=== PATIENT | female | born 1995 | race African-American/Black ===

== ENCOUNTER 2018-08-04 06:57 | Inpatient (IN) ==
[2018-08-04] MEDS ORDERED: CITRIC ACID/SODIUM CITRATE 30 ML UDCUP PO ONE ×2 (07:09→17:30)
[2018-08-04] MEDS ORDERED: FAMOTIDINE 20 MG/2 ML VIAL IV ONE ×2 (07:09→17:30)
[2018-08-04] MEDS ORDERED: ceFAZolin 3,000 MG in SYRINGE 1 EACH IV ONE ×2 (07:09→17:00)
[2018-08-04] MEDS ORDERED: LACTATED RINGERS 1,000 ML IV ONE (07:13)
[2018-08-04 07:29] LABS: Basophils % 0.3 % (0.0-0.8); Eosinophils # 0.1 10*3/uL (0.0-0.87); Eosinophils % 0.6 % (0.00-10.9); Hematocrit 37.6 VOL% (35.7-47.0); Hemoglobin 12.1 GM/DL (12.0-16.0); Immature Granulocytes % 0.4 %; Immature Granulocytes Absolute 0.03 #; Lymphocytes # 2.5 10*3/uL (1.4-4.0); Lymphocytes % 31.7 % (21.3-54.2); Mean Corpuscular HGB Conc 32.2 GM/DL (32-36); Mean Corpuscular Hemoglobin 28 PG (27-34); Mean Corpuscular Volume 85.5 FL (87-102); Mean Platelet Volume 9.5 FL (9.6-12.0); Monocytes # 0.6 10*3/uL (0.11-0.8); Monocytes % 7.1 % (1.7-12.7); Neutrophils # 4.6 10*3/uL (1.4-7.4); Neutrophils % 59.9 % (38.7-73.9); Platelet Count 351 T/CUMM (130-400); Red Cell Distribution Width 12.4 % (9.3-17.3); White Blood Count 7.7 T/CUMM (4-12)
[2018-08-04] MEDS ORDERED: LACTATED RINGERS 1,000 ML IV SCH ×2 (07:30→20:30)
[2018-08-04 07:50] LABS: Alanine Aminotransferase 22 U/L (13-56); Albumin 2.7 G/DL (3.4-5.0); Alkaline Phosphatase 170 U/L (45-117); Aspartate Amino Transferase 19 U/L (0-37); Bilirubin,Total < 0.39 MG/DL (0.2-1.0); Blood Urea Nitrogen 10 MG/DL (7-18); Calcium 8.6 MG/DL (8.5-10.1); Glucose 87 MG/DL (74-106); Osmolality,Calculated 276.4 MOS/KG (273-304); Potassium 4.1 MMOL/L (3.5-5.1); Sodium 140 MMOL/L (136-145); Total Protein 7.4 G/DL (6.4-8.3)
[2018-08-04 09:20] LABS: Rapid Plasma Reagin Confirm REACTIVE (Nonreactive)
[2018-08-04] MEDS ORDERED: OXYTOCIN 10 UNIT/ML VIAL ONE (17:48)
[2018-08-04] MEDS ORDERED: OXYTOCIN/LR 30 UNIT/1,000 ML BAG IV ONE (17:49)
[2018-08-04] MEDS ORDERED: PHENYLEPHRINE 1 MG/10 ML SYRINGE IV ONE (18:53)
[2018-08-04] MEDS ORDERED: fentaNYL 100 MCG/2 ML VIAL ONE (18:54)
[2018-08-04] MEDS ORDERED: BUPIVACAINE SPINAL 0.75% 2 ML AMP SPINAL ONE (18:55)
[2018-08-04] MEDS ORDERED: MORPHINE 10 MG/10 ML VIAL ONE (18:55)
[2018-08-04] MEDS ORDERED: ONDANSETRON 4 MG/2 ML VIAL ONE (18:55)
[2018-08-04 18:57] LABS: Cord Arterial Blood HCO3 23.5 MMOL/L
[2018-08-04 18:58] LABS: Cord Venous Blood HCO3 19.8 MMOL/L; Cord Venous Blood PO2 19.4
[2018-08-04 19:09] LABS: Apearance,Urine CLEAR (Clear); Bilirubin,Urine Negative (Negative); Blood, Urine Negative (Negative); Glucose,Urine (UA) Negative (Negative); Ketones,Urine 80 mg/dL (Negative); Mucus,Urine Occasional /LPF (Occasional); Nitrite,Urine Negative (Negative); Protein,Urine Negative; Squamous Epithelial Cell,Urine Occasional /HPF (0-10); Urine Color Yellow (Yellow); Urine Specific Gravity 1.011 (1.001-1.035); Urine Urobilinogen < 2.0 EU/DL (0.2-1.0); WBC,Urine <1 /HPF (0-6)
[2018-08-04] MEDS ORDERED: OXYTOCIN/LR 20 UNIT/1,000 ML BAG IV ONE ×2 (19:28→20:22)
[2018-08-04] MEDS ORDERED: ACETAMINOPHEN 325 MG TABLET PO PRN (20:22)
[2018-08-04] MEDS ORDERED: SIMETHICONE CHEW 80 MG TABLET PO PRN (20:22)
[2018-08-04] MEDS ORDERED: ONDANSETRON 4 MG/2 ML VIAL IV PRN (20:22)
[2018-08-04] MEDS ORDERED: RHO(D) IMMUNE GLOBULIN 300 MCG SYRINGE IM ONE (20:22)
[2018-08-04] MEDS: DOCUSATE SODIUM 100 MG CAPSULE PO SCH (21:29)
[2018-08-04] MEDS ORDERED: diphenhydrAMINE 50 MG/1 ML VIAL IV ONE (21:30)
[2018-08-05 00:48] LABS: Basophils % 0.2 % (0.0-0.8); Eosinophils % 0.3 % (0.00-10.9); Hematocrit 37.7 VOL% (35.7-47.0); Hemoglobin 11.9 GM/DL (12.0-16.0); Immature Granulocytes % 0.5 %; Immature Granulocytes Absolute 0.04 #; Lymphocytes # 1.7 10*3/uL (1.4-4.0); Lymphocytes % 18.8 % (21.3-54.2); Mean Corpuscular HGB Conc 31.6 GM/DL (32-36); Mean Corpuscular Hemoglobin 27 PG (27-34); Mean Corpuscular Volume 86.5 FL (87-102); Mean Platelet Volume 9.4 FL (9.6-12.0); Monocytes # 0.4 10*3/uL (0.11-0.8); Neutrophils # 6.7 10*3/uL (1.4-7.4); Neutrophils % 76.2 % (38.7-73.9); Platelet Count 300 T/CUMM (130-400); Red Blood Count 4.36 MC/CUMM (3.8-5.5); Red Cell Distribution Width 12.1 % (9.3-17.3); White Blood Count 8.8 T/CUMM (4-12)
[2018-08-05] MEDS: ceFAZolin 1,000 MG in SYRINGE 1 EACH IV SCH ×2 (01:04→09:36)
[2018-08-05] MEDS: IBUPROFEN 800 MG TABLET PO PRN ×2 (03:42→20:07)
[2018-08-05] MEDS ORDERED: METOCLOPRAMIDE 10 MG TABLET PO SCH ×2 (06:00)
[2018-08-05 07:30] LABS: Basophils % 0.2 % (0.0-0.8); Eosinophils # 0.1 10*3/uL (0.0-0.87); Hematocrit 33.9 VOL% (35.7-47.0); Hemoglobin 10.9 GM/DL (12.0-16.0); Immature Granulocytes % 0.3 %; Immature Granulocytes Absolute 0.03 #; Lymphocytes # 1.3 10*3/uL (1.4-4.0); Lymphocytes % 14.6 % (21.3-54.2); Mean Corpuscular HGB Conc 32.2 GM/DL (32-36); Mean Corpuscular Hemoglobin 28 PG (27-34); Mean Platelet Volume 9.5 FL (9.6-12.0); Monocytes # 0.7 10*3/uL (0.11-0.8); Monocytes % 7.8 % (1.7-12.7); Neutrophils # 6.9 10*3/uL (1.4-7.4); Neutrophils % 76.1 % (38.7-73.9); Platelet Count 271 T/CUMM (130-400); Red Blood Count 3.94 MC/CUMM (3.8-5.5); Red Cell Distribution Width 12.1 % (9.3-17.3); White Blood Count 9.1 T/CUMM (4-12)
[2018-08-05] MEDS: MULTIVITAMIN (PRENATAL) TABLET PO SCH (09:35)
[2018-08-05] MEDS: DOCUSATE SODIUM 100 MG CAPSULE PO SCH ×2 (09:35→20:07)
[2018-08-05] MEDS: METOCLOPRAMIDE 10 MG TABLET PO SCH ×3 (09:36→20:07)
[2018-08-05] MEDS: CIPROFLOXACIN 500 MG TABLET PO SCH ×2 (14:04→20:07)
[2018-08-05] MEDS: MAGNESIUM HYDROXIDE SUSP 30 ML UDCUP PO PRN ×2 (14:16→20:07)
[2018-08-06] MEDS ORDERED: BISACODYL 10 MG SUPP RECTAL PRN (03:01)
[2018-08-06] MEDS: METOCLOPRAMIDE 10 MG TABLET PO SCH ×4 (03:08→20:23)
[2018-08-06] MEDS: CIPROFLOXACIN 500 MG TABLET PO SCH ×2 (10:05→20:25)
[2018-08-06] MEDS: MULTIVITAMIN (PRENATAL) TABLET PO SCH (10:05)
[2018-08-06] MEDS: DOCUSATE SODIUM 100 MG CAPSULE PO SCH ×2 (10:05→20:23)
[2018-08-06] MEDS: MAGNESIUM HYDROXIDE SUSP 30 ML UDCUP PO PRN ×2 (13:23→20:23)
[2018-08-06 13:49] LABS: Hematocrit 33.3 VOL% (35.7-47.0); Hemoglobin 10.8 GM/DL (12.0-16.0)
[2018-08-06] MEDS: IBUPROFEN 800 MG TABLET PO PRN (22:20)
[2018-08-07] MEDS ORDERED: MAGNESIUM CITRATE 300 ML BOTTLE PO ONE (01:35)
[2018-08-07] MEDS: METOCLOPRAMIDE 10 MG TABLET PO SCH ×2 (04:06→09:28)
[2018-08-07 07:29] VITALS: BP 119/61
[2018-08-07] MEDS: DOCUSATE SODIUM 100 MG CAPSULE PO SCH (09:28)
[2018-08-07] MEDS: CIPROFLOXACIN 500 MG TABLET PO SCH (09:28)
[2018-08-07] MEDS: MULTIVITAMIN (PRENATAL) TABLET PO SCH (09:28)
[2018-08-07] MEDS ORDERED: DIPH/TET/ACEL PERT BOOSTER VACCINE 0.5 ML VIAL IM ONE (11:56)
== END 2018-08-07 13:25 | disposition home or self-care (01) | DRG 540 ==
LOC: N.LDOUT 06:57 → N.LD 06:58 → N.OB 22:45
PROVIDERS: ADMIT Obstetrics & Gynecology; ATTEND Obstetrics & Gynecology
PROC: LDCSECT (ICD-10-PCS; 2018-08-04 15:00)